=== PATIENT | female | born 1995 | race Hispanic/Latino ===

== ENCOUNTER 2020-06-22 13:01 | Emergency (ER) | payer MEDICAID ==
[2020-06-22] MEDS ORDERED: LIDOCAINE HCL 1% 20 ML VIAL ONE (13:32)
== END 2020-06-22 14:26 | disposition home or self-care (01) ==
LOC: EDH 13:01
DX: O9A.211 Injury, poisoning and certain other consequences of external causes complicating pregnancy, first trimester (principal); S60.141A Contusion of right ring finger with damage to nail, initial encounter; W23.0XXA Caught, crushed, jammed, or pinched between moving objects, initial encounter; Y93.E1 Activity, personal bathing and showering; Y92.89 Other specified places as the place of occurrence of the external cause; Z3A.08 8 weeks gestation of pregnancy; Y99.8 Other external cause status
CPT/HCPCS: 29130